=== PATIENT | female | born 1965 | race Caucasian/White ===

== ENCOUNTER 2022-09-29 10:42 | Outpatient (REF) | payer MEDICAID, SELFPAY ==
[2022-09-29 13:50] LABS: MANUAL DIFF FLAG NO
[2022-09-29 13:57] LABS: Basophils Percent Auto 0.5 % (0-2); Eosinophils Absolute Auto 0.1 X10*3/uL (0.0-0.4); Eosinophils Percent Auto 1.6 % (0-4); Hematocrit 39.7 % (37.0-47.0); Hemoglobin 12.6 g/dl (12.0-16.0); Imm Gran Abs Auto 0.02 X10*3/uL (0.00-0.03); Imm Gran Pct Auto 0.3 % (0.0-0.4); Lymphocytes Absolute Auto 2.7 X10*3/uL (1.2-4.9); Lymphocytes Percent Auto 43.1 % (20-40); Mean Corpuscular HGB Conc 31.7 g/dl (31.0-35.0); Mean Corpuscular Hemoglobin 26.3 pg (27.0-33.0); Mean Corpuscular Volume 82.9 fL (80.0-98.0); Mean Platelet Volume 11.8 fL (9.4-12.3); Monocytes Absolute Auto 0.5 X10*3/uL (0.1-1.2); Monocytes Percent Auto 8.6 % (2-11); Neutrophils Absolute Auto 2.8 x10*3/uL (2.0-8.3); Neutrophils Percent Auto 45.9 % (45-73); Platelet Count 207 X10*3/uL (160-400); Red Blood Count 4.79 X10*6/uL (4.20-5.50); Red Cell Distribution Width 15.8 % (11.0-16.0); White Blood Count 6.2 X10*3/uL (4.8-10.8)
[2022-09-29 14:22] LABS: Estimated Average Glucose 131 mg/dL; Hemoglobin A1c % 6.2 %
[2022-09-29 14:23] LABS: Alanine Aminotransferase 59 U/L (0-31); Albumin Level 4.4 g/dL (3.5-5.0); Alkaline Phosphatase 107 U/L (39-117); Anion Gap 16 (12-20); Aspartate Amino Transferase 48 U/L (5-31); Bilirubin Total 0.5 mg/dL (0.0-1.0); Blood Urea Nitrogen 15 mg/dL (9-16); Calcium 9.5 mg/dL (8.4-10.2); Carbon Dioxide 27 mmol/L (22-29); Chloride 103 mmol/L (96-108); Cholesterol 135 mg/dL; Estimated Glomerular Filt Rate > 60; Glucose Fasting 101 mg/dL (60-99); HDL Cholesterol 45 mg/dL; LDL Cholesterol Calculated 64 mg/dl; Potassium 3.9 mmol/L (3.3-5.1); Sodium 142 mmol/L (135-145); Total Protein 7.2 g/dL (6.5-8.0); Triglycerides 131 mg/dL
[2022-09-29 14:31] LABS: Creatinine Urine 202.06 mg/dL; Microalbum/Creatinine Ratio Ur 7.9 ug/mg cr
[2022-09-29 14:44] LABS: Thyroid Stimulating Hormone 1.95 uIU/mL (0.32-4.0)
== END 2022-09-29 10:43 | disposition home or self-care (01) ==
LOC: HO.10HDL 10:42
PROVIDERS: Visit Provider Internal Medicine
DX: Z00.00 Encounter for general adult medical examination without abnormal findings (principal); E78.00 Pure hypercholesterolemia, unspecified; E88.9 Metabolic disorder, unspecified; F32.4 Major depressive disorder, single episode, in partial remission; I10 Essential (primary) hypertension; Z95.818 Presence of other cardiac implants and grafts
CPT/HCPCS: 36415; 80053; 80061; 82043; 83036; 84443; 85025

== ENCOUNTER 2022-10-07 09:44 | Outpatient (REF) | payer MEDICAID, SELFPAY ==
--- NOTE | ~2022-10-07 | MM_ITS ---
EXAMINATION: MM SCREENING DIGITAL BREAST TOMOSYNTHESIS, BILATERAL CLINICAL INFORMATION: Screening. Asymptomatic. The lifetime risk of breast cancer based on the Tyrer-Cuzick Model is 5.5%. COMPARISON: Mammography: None TECHNIQUE: Digital breast tomosynthesis is performed in both the craniocaudal and mediolateral oblique views along with computer-aided detection (CAD). Synthesized 2D images are generated from the tomosynthesis. FINDINGS: The breasts are almost entirely fatty (ACR BI-RADS breast composition Category a). There are no significant masses, abnormal calcifications, or other abnormalities. MM/MM tomosynthesis screening BI IMPRESSION: No mammographic evidence of malignancy. ASSESSMENT: BI-RADS 1: Negative RECOMMENDATION: Routine annual mammography screening. This patient's information was entered into a reminder system with a target due date for their next mammogram.
== END 2022-10-07 09:45 | disposition home or self-care (01) ==
LOC: HO.MAMMO 09:44
PROVIDERS: Visit Provider Internal Medicine
DX: Z12.31 Encounter for screening mammogram for malignant neoplasm of breast (principal)
CPT/HCPCS: 77063; 77067

== ENCOUNTER 2022-11-20 10:56 | Day surgery (SDC) | payer MEDICAID, SELFPAY ==
--- NOTE | 2022-11-19 10:40 | HO.ANESPROP2 ---
Documented by User: Mayelin Harris NP 11/19/22 11:16 HPI - Anesthesia Eval Consult details Narrative: 57yo F for Colonoscopy PA with stent 2016. Only follows with PCP now. No CP or SOB with >4 mets. EKG nml per 09/2022 per PCP OV note PMFSH Past Medical History Medical History Diabetes HTN (hypertension) Hyperlipidemia Myocardial infarction Panic attack Surgical History Surgical History Hx of heart artery stent Hx of hysterectomy Social History Social History Patient Tobacco Use Status: Former Tobacco user Are you DNR?: No Advance Directives: No Advance Directives Information Provided: Yes Recently lost weight without trying: No Nutrition Risks: No Nutritional Risk Meds Allergies Allergy/AdvReac Type Severity Reaction Status Date / Time No Known Allergies Allergy Verified 11/19/22 06:11 Home Medications Medication Instructions Recorded Confirmed Last Taken Type aspirin 81 mg tablet,delayed 1 tab PO DAILY 11/19/22 11/19/22 11/13/22 History release lorazepam 0.5 mg tablet 1 - 1.5 tab PO DAILY PRN Anxiety 11/19/22 11/19/22 Unknown History metformin 500 mg tablet 1 tab PO BID 11/19/22 11/19/22 Unknown History metoprolol succinate 50 mg 1 tab PO DAILY 11/19/22 11/19/22 11/20/22 History tablet,extended release 24 hr rosuvastatin 40 mg tablet 1 tab PO DAILY 11/19/22 11/19/22 Unknown History sertraline 100 mg tablet 1 tab PO DAILY 11/19/22 11/19/22 11/20/22 History cholecalciferol (vitamin D3) 50 50 mcg PO DAILY 11/20/22 11/20/22 Unknown History mcg (2,000 unit) tablet (Vitamin D3) lisinopril 20 1 tab PO DAILY 11/20/22 11/20/22 Unknown History mg-hydrochlorothiazide 25 mg tablet Exam Exam Date and Time: November 19, 2022 1040 Pertinent Lab Results Pertinent Lab Results: Laboratory Tests 09/29/22 09/29/22 10:50 10:50 WBC 6.2 Hgb 12.6 Hct 39.7 Plt Count 207 Sodium 142 Potassium 3.9 Chloride 103 Carbon Dioxide 27 BUN 15 Creatinine 0.81 Assessment and Plan Assessment Anesthesia Assessment: Chart Reviewed Documented by User: Sophie Crouch MD 11/20/22 12:43 PMFSH Past Medical History Medical History Diabetes HTN (hypertension) Hyperlipidemia Myocardial infarction Panic attack Functional capacity: independent ambulation Family History Family history of problems with anesthesia: No Surgical History Surgical History Hx of heart artery stent Hx of hysterectomy Social History Social History Patient Tobacco Use Status: Former Tobacco user Are you DNR?: No Advance Directives: No Advance Directives Information Provided: Yes Recently lost weight without trying: No Nutrition Risks: No Nutritional Risk Meds Allergies Allergy/AdvReac Type Severity Reaction Status Date / Time No Known Allergies Allergy Verified 11/19/22 06:11 Home Medications Medication Instructions Recorded Confirmed Last Taken Type aspirin 81 mg tablet,delayed 1 tab PO DAILY 11/19/22 11/19/22 11/13/22 History release lorazepam 0.5 mg tablet 1 - 1.5 tab PO DAILY PRN Anxiety 11/19/22 11/19/22 Unknown History metformin 500 mg tablet 1 tab PO BID 11/19/22 11/19/22 Unknown History metoprolol succinate 50 mg 1 tab PO DAILY 11/19/22 11/19/22 11/20/22 History tablet,extended release 24 hr rosuvastatin 40 mg tablet 1 tab PO DAILY 11/19/22 11/19/22 Unknown History sertraline 100 mg tablet 1 tab PO DAILY 11/19/22 11/19/22 11/20/22 History cholecalciferol (vitamin D3) 50 50 mcg PO DAILY 11/20/22 11/20/22 Unknown History mcg (2,000 unit) tablet (Vitamin D3) lisinopril 20 1 tab PO DAILY 11/20/22 11/20/22 Unknown History mg-hydrochlorothiazide 25 mg tablet Exam Airway Mallampati Class: II TM Dist: >3cm Neck ROM: Full Heart: RRR Lungs: CTA Assessment and Plan Final Anesthetic Review Family History of Problems with Anesthesia: No Final Preanesthetic Review: No Changes in Pt Med Stat, Meds/Allgs Chart Reviewed, Consent Obtained/Reviewed and Anes Risks/Benef Reviewed Patient Risk: Intermediate Procedure Risk: Low Anesthetic Plan Anesthetic Plan: MAC: Disposition: Standard PACU
[2022-11-20 10:38] VITALS: BMI 38.2
[2022-11-20 10:59] VITALS: BP 151/99; PULSE 104; RESP 20; TEMP 36.3; O2SAT 98
[2022-11-20 11:10] LABS: Glucose, Whole Blood 143 mg/dL (60-115)
[2022-11-20] MEDS: Lactated Ringers 1,000 ML 100 ML IVCONT (11:30)
--- NOTE | 2022-11-20 12:24 | MHC.SHP ---
Pre-Procedural Eval Section A Date of Service: 11/20/22 The patient is an INPATIENT: No Changes since office visit: No Cold of Flu in the past 2 weeks, No New Medical Problems, No Changes in Medication and No Patient answered all questions The History & Physical has been completed within 30 days and I have reviewed it.: Yes Section B Chief Complaint: screening Allergies: Allergies Allergy/AdvReac Type Severity Reaction Status Date / Time No Known Allergies Allergy Verified 11/19/22 06:11 Plan I have reviewed the history and physical and performed a pertinent physical examination on my patient. No changes have occurred unless specified. Time Spent With Patient Time: Total time managing care of this patient today ____ minutes.
--- NOTE | 2022-11-20 13:03 | P.BOP_ITS ---
Brief Operative Note Date of Service: 11/20/22 Pre-op diagnosis: screening Post-op diagnosis: same Procedure: colonoscopy Surgeon: Keith Berrios Anesthesia: MAC Was an Flame Brazing Machine Operator used for this Procedure?: No Estimated blood loss (mL): 3 Pathology: other Condition: stable Disposition: PACU
[2022-11-20 13:06] VITALS: BP 92/65; PULSE 82; RESP 16; TEMP 36.4; O2SAT 96
[2022-11-20 13:21] VITALS: BP 143/89; PULSE 78; RESP 16; TEMP 36.4; O2SAT 96
--- NOTE | 2022-11-20 13:34 | HO.POSTANES ---
Post Anesthesia Evaluation Post Anesthesia Evaluation Vital Signs: Vital Signs Temp Pulse Resp BP Pulse Ox O2 Del Method 11/20/22 13:21 97.6 F 78 16 143/89 H 96 Room Air 11/20/22 13:06 97.6 F 82 16 92/65 96 Room Air 11/20/22 10:59 97.3 F 104 H 20 151/99 H 98 Room Air Anesthesia: Monitored Mental Status: Awake Pain Control: Satisfactory Nausea/Vomiting: None Hydration: Adequate Anesthesia-Related Issues: No Anes. Related Issues
--- NOTE | 2022-11-21 00:59 | OP_ITS ---
SURGEON: Keith Berrios MD PREOPERATIVE DIAGNOSIS: POSTOPERATIVE DIAGNOSIS: PROCEDURE PERFORMED: ESTIMATED BLOOD LOSS: COMPLICATIONS: ANESTHESIA: ASSISTANTS: SPECIMENS: DESCRIPTION OF PROCEDURE: The history and physical was performed. The risks and benefits of the procedure were explained to the patient, and informed consent was obtained. The procedure was performed on 11/20/2022. A digital rectal exam was performed and was found to be normal. The Olympus pediatric video colonoscope was introduced into the rectum and advanced to the cecum without difficulty. The cecum was identified by transillumination, palpation, and identification of the ileocecal valve. Examination was performed. The scope was removed. She tolerated the procedure well and was returned to the recovery area in stable condition. FINDINGS: The terminal ileum was examined and appeared normal. The visualized colonic mucosa was normal. There were 2 polyps, which were removed with a snare. These were located at 80 cm and 75 cm. The 3rd polyp measuring less than 5 mm in the cecum was removed with the biopsy forceps. There was mild sigmoid diverticulosis. The quality of the prep was good. Retroflexed examination was normal. IMPRESSION: Colon polyps. RECOMMENDATION: Follow up the biopsy results. MD YUE Hester/ALMA / [id number]
== END 2022-11-20 13:45 | disposition home or self-care (01) ==
PROVIDERS: PCP Internal Medicine; Visit Provider Internal Medicine Gastroenterology
PROC: 0DJD8ZZ Inspection of Lower Intestinal Tract, Via Natural or Artificial Opening Endoscopic (ICD-10-PCS; CPT 45378; principal; 2022-11-20 12:00)
DX: Z12.11 Encounter for screening for malignant neoplasm of colon (principal); D12.0 Benign neoplasm of cecum; D12.4 Benign neoplasm of descending colon; K57.30 Diverticulosis of large intestine without perforation or abscess without bleeding; I25.10 Atherosclerotic heart disease of native coronary artery without angina pectoris; I10 Essential (primary) hypertension; Z95.5 Presence of coronary angioplasty implant and graft; I25.2 Old myocardial infarction; E78.5 Hyperlipidemia, unspecified; E11.9 Type 2 diabetes mellitus without complications; Z79.84 Long term (current) use of oral hypoglycemic drugs; Z79.82 Long term (current) use of aspirin; Z79.899 Other long term (current) drug therapy; Z87.891 Personal history of nicotine dependence
CPT/HCPCS: 45385; 45380; 82947; 88305

== ENCOUNTER 2023-03-04 13:23 | Outpatient (REF) | payer MEDICAID, SELFPAY ==
[2023-03-04 14:52] LABS: Alanine Aminotransferase 48 U/L (0-31); Albumin Level 4.2 g/dL (3.5-5.0); Alkaline Phosphatase 108 U/L (39-117); Anion Gap 17 (12-20); Aspartate Amino Transferase 41 U/L (5-31); Bilirubin Total 0.5 mg/dL (0.0-1.0); Blood Urea Nitrogen 15 mg/dL (9-16); Calcium 9.8 mg/dL (8.4-10.2); Carbon Dioxide 27 mmol/L (22-29); Chloride 103 mmol/L (96-108); Estimated Glomerular Filt Rate > 60; Glucose Random 87 mg/dL (60-115); Potassium 3.3 mmol/L (3.3-5.1); Sodium 144 mmol/L (135-145); Total Protein 7.6 g/dL (6.5-8.0)
[2023-03-05 12:47] LABS: HBS Num1 0.07 mIU/mL (0-7.99); HBc Num1 0.09 S/CO (0.00-0.79); HBsAGNum1 0.32 S/CO (0.00-0.99); Hepatitis A Antibody IgM 0.27 Index (0-0.79); Hepatitis B Core Antibody Nonreactive (Nonreactive); Hepatitis B Surface Antigen Negative (Negative); ~HepC Num1 0.06 S/CO (0.00-0.79); ~Hepatitis A Antibody IgM Nonreactive (Nonreactive); ~Hepatitis B Surface Antibody NONREACTIVE (Nonreactive); ~Hepatitis C Antibody Nonreactive (Nonreactive)
== END 2023-03-04 13:24 | disposition home or self-care (01) ==
LOC: HO.LAB 13:23
PROVIDERS: PCP Internal Medicine; Visit Provider Internal Medicine
DX: E78.00 Pure hypercholesterolemia, unspecified (principal); I10 Essential (primary) hypertension; R74.01 Elevation of levels of liver transaminase levels; Z95.818 Presence of other cardiac implants and grafts
CPT/HCPCS: 36415; 80053; 86704; 86706; 86709; 86803; 87340

== ENCOUNTER 2023-06-24 08:07 | Outpatient (REF) | payer MEDICAID, SELFPAY | END 2023-06-24 08:08 | disposition home or self-care (01) | LOC: HO.LAB 08:07 | PROVIDERS: PCP Internal Medicine; Visit Provider Internal Medicine | DX: E11.9 Type 2 diabetes mellitus without complications (principal); E78.00 Pure hypercholesterolemia, unspecified; I10 Essential (primary) hypertension; R74.01 Elevation of levels of liver transaminase levels | CPT/HCPCS: 36415; 80053; 83036 ==

== ENCOUNTER 2023-10-13 09:59 | Outpatient (REF) | payer MEDICAID, SELFPAY ==
--- NOTE | ~2023-10-13 | MM_ITS ---
EXAMINATION: MM SCREENING DIGITAL BREAST TOMOSYNTHESIS, BILATERAL CLINICAL INFORMATION: Screening. Asymptomatic. COMPARISON: Mammography: This study is compared with prior exams dating back to 2022. TECHNIQUE: Digital breast tomosynthesis is performed in both the craniocaudal and mediolateral oblique views along with computer-aided detection (CAD). Synthesized 2D images are generated from the tomosynthesis. FINDINGS: The breasts are almost entirely fatty (ACR BI-RADS breast composition Category a). There are no significant masses, abnormal calcifications, or other abnormalities. MM/MM tomosynthesis screening BI IMPRESSION: No mammographic evidence of malignancy. ASSESSMENT: BI-RADS BI-RADS 1 - Negative RECOMMENDATION: Routine annual mammography screening. 1 year F/U This examination should not preclude the clinical evaluation of a suspicious palpable abnormality. This patient's information was entered into a reminder system with a target due date for their next mammogram.
[2023-10-13 11:10] LABS: MANUAL DIFF FLAG NO
[2023-10-13 11:59] LABS: Basophils Percent Auto 0.6 % (0-2); Eosinophils Absolute Auto 0.1 X10*3/uL (0.0-0.4); Eosinophils Percent Auto 1.4 % (0-4); Hematocrit 38.9 % (37.0-47.0); Hemoglobin 12.3 g/dl (12.0-16.0); Imm Gran Abs Auto 0.02 X10*3/uL (0.00-0.03); Imm Gran Pct Auto 0.3 % (0.0-0.4); Lymphocytes Absolute Auto 2.6 X10*3/uL (1.2-4.9); Lymphocytes Percent Auto 39.3 % (20-40); Mean Corpuscular HGB Conc 31.6 g/dl (31.0-35.0); Mean Corpuscular Hemoglobin 26.2 pg (27.0-33.0); Mean Corpuscular Volume 82.9 fL (80.0-98.0); Mean Platelet Volume 11.5 fL (9.4-12.3); Monocytes Absolute Auto 0.5 X10*3/uL (0.1-1.2); Neutrophils Absolute Auto 3.4 x10*3/uL (2.0-8.3); Neutrophils Percent Auto 50.4 % (45-73); Platelet Count 200 X10*3/uL (160-400); Red Blood Count 4.69 X10*6/uL (4.20-5.50); Red Cell Distribution Width 15.9 % (11.0-16.0); White Blood Count 6.7 X10*3/uL (4.8-10.8)
[2023-10-13 12:05] LABS: Estimated Average Glucose 126 mg/dL
[2023-10-13 12:35] LABS: Alanine Aminotransferase 60 U/L (0-31); Albumin Level 4.2 g/dL (3.5-5.0); Alkaline Phosphatase 107 U/L (39-117); Anion Gap 14 (12-20); Aspartate Amino Transferase 48 U/L (5-31); Bilirubin Total 0.5 mg/dL (0.0-1.0); Blood Urea Nitrogen 13 mg/dL (9-16); Calcium 9.7 mg/dL (8.4-10.2); Carbon Dioxide 29 mmol/L (22-29); Chloride 101 mmol/L (96-108); Cholesterol 119 mg/dL (<200); Estimated Glomerular Filt Rate > 60; Glucose Random 100 mg/dL (60-115); HDL Cholesterol 39 mg/dL (>40); LDL Cholesterol Calculated 54 mg/dL (<100); Potassium 3.4 mmol/L (3.3-5.1); Sodium 141 mmol/L (135-145); Total Protein 7.6 g/dL (6.5-8.0); Triglycerides 134 mg/dL (<150)
[2023-10-17 23:18] LABS: Smooth Muscle Antibody <20 U (<20)
[2023-10-19 11:19] LABS: Anti Nuclear Antibody Screen NEGATIVE (NEGATIVE)
== END 2023-10-13 10:00 | disposition home or self-care (01) ==
LOC: HO.MAMMO 09:59
PROVIDERS: PCP Internal Medicine; Visit Provider Internal Medicine
DX: Z00.00 Encounter for general adult medical examination without abnormal findings (principal); E11.9 Type 2 diabetes mellitus without complications; E78.00 Pure hypercholesterolemia, unspecified; R74.01 Elevation of levels of liver transaminase levels
CPT/HCPCS: 36415; 77063; 77067; 80053; 80061; 83036; 85025; 86015; 86038

== ENCOUNTER → 2023-10-13 10:30 | Outpatient (BNV) | payer MEDICAID, SELFPAY | PROVIDERS: PCP Internal Medicine; Visit Provider Radiology Diagnostic Radiology | DX: Z12.31 Encounter for screening mammogram for malignant neoplasm of breast (principal) | CPT/HCPCS: 77063; 77067 ==

== ENCOUNTER 2023-11-22 07:51 | Outpatient (REF) | payer MEDICAID, SELFPAY ==
--- NOTE | ~2023-11-22 | US_ITS ---
EXAMINATION: US COMPLETE ABDOMEN WITH LIVER ELASTOGRAPHY CLINICAL INFORMATION: Elevated LFTs. COMPARISON: None available. TECHNIQUE: Real-time imaging of the abdominal viscera. Noninvasive ultrasound liver fibrosis assessment is performed using Nathaly ElastPQ point quantification shear wave elastography (2D-SWE) with a C5-2 MHz transducer. Multiple elastography samples are obtained. FINDINGS: PANCREAS: Head and body appear unremarkable. Tail not visualized. ABDOMINAL AORTA: The proximal, middle, and distal aortic segments are normal in caliber. INFERIOR VENA CAVA: Visualized portions are normal. LIVER: Diffusely echogenic. Unremarkable contour. No focal lesion or intrahepatic biliary duct dilatation. The right lobe measures 21.7 cm in length. The left lobe measures 12.1 cm in length. Portal flow is towards the liver (hepatopetal). Shear wave liver elastography median stiffness is 1.44 m/s (reference: normal median stiffness is 1.3 m/s or less). IQR/median stiffness to assess sampling precision is 0.29 (reference: good quality data set is IQR/median stiffness of 0.15 or less). GALLBLADDER: The gallbladder is physiologically distended without evidence of stones, sludge, polyps, wall thickening or pericholecystic fluid. COMMON BILE DUCT: Normal in caliber measuring 0.4 cm in diameter. RIGHT KIDNEY: No hydronephrosis. No renal calculi or focal parenchymal lesion identified. The kidney measures 12.7 cm in maximum dimension. LEFT KIDNEY: No hydronephrosis. No renal calculi or focal parenchymal lesion identified. The kidney measures 11.7 cm in maximum dimension. SPLEEN: The spleen measures 11.3 cm in maximum dimension. FREE FLUID: None. US/US abdomen comp w elastography IMPRESSION: Fatty infiltration of liver. Hepatomegaly. Liver elastography: Although measurements appear to rule out compensated advanced chronic liver disease, there is statistical variability of the sampling which decreases accuracy. REFERENCE: Society of Radiologists in Ultrasound Liver Stiffness Thresholds (2020): LIVER STIFFNESS THRESHOLDS: *Liver Stiffness equal or less than 1.3 m/s: High probability of being normal. *Liver Stiffness less than 1.7 m/s: In the absence of other known clinical signs, rules out compensated advanced chronic liver disease. *Liver Stiffness 1.7-2.1 m/s: Suggestive of compensated advanced chronic liver disease but need further test for confirmation. *Liver Stiffness over 2.1 m/s: Rules in compensated advanced chronic liver disease. *Liver Stiffness over 2.4 m/s: Suggestive of clinically significant portal hypertension. QUALITY OF DATA SET: *IQR/Median value equal or less than 0.15 implies a quality data set. *IQR/Median value over 0.15 implies a poor quality data set. SIGNIFICANT CHANGE FROM PRIOR EXAM: Significant change if liver stiffness measurement is 10% or greater from prior exam. OTHER CONSIDERATIONS: The stage of liver fibrosis may be overestimated in the setting of acute hepatitis, liver inflammation, elevated liver function tests, hepatic vascular congestion, obstructive cholestasis, non-fasting state, and infiltrative diseases such as amyloidosis and lymphoma. In some patients with NAFLD, the liver stiffness thresholds for compensated advanced chronic liver disease may be lower. In causes other than viral hepatitis and NAFLD, liver stiffness thresholds are not well established.
== END 2023-11-22 07:52 | disposition home or self-care (01) ==
LOC: HO.US 07:51
PROVIDERS: PCP Internal Medicine; Visit Provider Internal Medicine
DX: R74.01 Elevation of levels of liver transaminase levels (principal)
CPT/HCPCS: 76700; 76981

== ENCOUNTER 2024-10-18 09:31 | Outpatient (REF) | payer MEDICAID, SELFPAY ==
--- OUTSIDE RECORDS SUMMARY | 2024-10-18 11:04 | XMS_ITS | Patient Health Record ---
Author Organization [facility] Address [address] [place] [id number] Care Team Providers Care Product Delivery Specialist Name Role Phone Matilde Guaman Primary Care Provider Unavailab Keith Brar Jr Unavailable ALLERGIES No Known Allergies REASON FOR REFERRAL No Information MEDICATIONS Medication SIG (Take, Route, Frequency, Duration) Notes Start Date End Date Status metFORMIN HCl 500 MG TAKE 1 TABLET BY MO UTH TWICE DAILY Oral for 90 Active Metoprolol Succinate ER 50 MG TAKE 1 TABLET BY MOUTH DAILY Oral for 90 Active Aspirin Low Dose 81 MG TAKE 1 TABLET BY MOUTH DAILY Oral for 90 Active Lisinopril-hydroCHLOROthiaz vandana 20-25 MG TAKE 1 TABLET BY MOUTH DAILY Oral for 90 Active Sertraline HCl 100 MG TAKE 1 TABLET BY M OUTH EVERY DAY Oral for 90 Active LORazepam 0.5 MG TAKE 1 TO 1 AND 1/2 TABLETS BY MOUTH DAILY NEEDED Oral for 30 Active Rosuvastatin Calcium 40 MG TAKE 1 TABLET BY MOUTH EVERY DAY Oral for 90 Active MiraLax (colon prep) 17 GM/SCOOP mixed with Gatorade or Crystal Light Orally begin at 5:00 p.m. the day before the procedure for 1 day 10/26/2022 Active IMMUNIZATIONS Vaccine Route Administration Date Status Comme nts Influenza Unknown 07/01/2022 Administered SOCIAL HISTORY Tobacco Use: Social History Observation Description Date Details (start date - stop date) Former Smoker NA - NA Sex Assigned At : Social History Observation Description Sex Assigned At Unknown Tobacco Use/Smoking Question Answer Notes Patient is a former smoker Alcohol Screen Question Answer Notes Did you have a drink containing alcohol in the p ast year? 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 (Z79.84) Active confirmed [id number] PLAN OF TREATMENT Future Test Test Name Order Date COLONOSCOPY 10/26/2022 Insurance Providers Payer Name Payer Address Payer Phone Subscriber Number Group Number Insured Name Patient Relationship to Insured Coverage Start Date Coverage End Date MEDICA[employer] OF [employer] [address] [place] [phone] [id number] SANDRA ROSE Self - patient is the insured MEDICAL (GENERAL) HISTORY Medical History History ICD Code Coronary artery disease with [place] and sten t placement 2017 Hypertension Hyperlipidemia Elevated blood sugar Panic attacks Surgical History Surgery Date(Month/Year) hysterectomy 2003 stent/heart 2017
== END 2024-10-18 09:32 | disposition home or self-care (01) ==
LOC: HO.MAMMO 09:31
PROVIDERS: PCP Internal Medicine; Visit Provider Internal Medicine
DX: Z12.31 Encounter for screening mammogram for malignant neoplasm of breast (principal)
CPT/HCPCS: 77063; 77067

== ENCOUNTER → 2024-10-18 10:00 | Outpatient (BNV) | payer MEDICAID, SELFPAY | PROVIDERS: PCP Internal Medicine; Visit Provider Internal Medicine | DX: Z12.31 Encounter for screening mammogram for malignant neoplasm of breast (principal) | CPT/HCPCS: 77063; 77067 ==

== ENCOUNTER 2024-10-18 10:19 | Outpatient (REF) | payer MEDICAID, SELFPAY ==
[2024-10-18 11:26] LABS: Estimated Average Glucose 131 mg/dL; Hemoglobin A1C 148.6855 umol/L; Hemoglobin A1c % 6.2 % (<6.0); Total Hemoglobin (HGBA1C) 3374.5025 umol/L
[2024-10-18 11:47] LABS: Alanine Aminotransferase 71 U/L (0-31); Albumin Level 4.3 g/dL (3.5-5.0); Alkaline Phosphatase 115 U/L (39-117); Anion Gap 13 (12-20); Aspartate Amino Transferase 68 U/L (5-31); Bilirubin Total 0.5 mg/dL (0.0-1.0); Blood Urea Nitrogen 15 mg/dL (9-16); Calcium 9.7 mg/dL (8.4-10.2); Carbon Dioxide 30 mmol/L (22-29); Chloride 99 mmol/L (96-108); Cholesterol 114 mg/dL (<200); Estimated Glomerular Filt Rate > 60; Glucose Random 107 mg/dL (60-115); HDL Cholesterol 36 mg/dL (>40); LDL Cholesterol Calculated 58 mg/dL (<100); Sodium 139 mmol/L (135-145); Total Protein 8.1 g/dL (6.5-8.0); Triglycerides 102 mg/dL (<150)
[2024-10-18 12:05] LABS: Thyroid Stimulating Hormone 1.38 uIU/mL (0.32-4.0)
[2024-10-18 12:19] LABS: Creatinine Urine 221.63 mg/dL; Microalbum/Creatinine Ratio Ur 9.4 ug/mg cr (<30)
== END 2024-10-18 10:20 | disposition home or self-care (01) ==
LOC: HO.LAB 10:19
PROVIDERS: PCP Internal Medicine; Visit Provider Internal Medicine
DX: Z00.00 Encounter for general adult medical examination without abnormal findings (principal); E78.00 Pure hypercholesterolemia, unspecified; E88.9 Metabolic disorder, unspecified; R74.01 Elevation of levels of liver transaminase levels; Z95.818 Presence of other cardiac implants and grafts
CPT/HCPCS: 36415; 80053; 80061; 82043; 82570; 83036; 84443

== ENCOUNTER 2025-03-29 13:51 | Outpatient (REF) | payer MEDICAID, SELFPAY ==
--- OUTSIDE RECORDS SUMMARY | 2025-03-05 09:35 | XMS_ITS ---
Author Organization [facility] Address [address] [place] [phone] Care Team Providers Care Linux Administrator Name Role Phone Matilde Guaman Primary Care Provider Unavailab marco Berrios Jr, Keith Unavailable REASON FOR VISIT ELEVATED TRANSAMNASE Encounters Encounter Location Date Provider Diagnosis [facility] [address] [place] [phone] 03/05/2025 Keith Berrios Jr Plan Of Treatment Next Appt Details Provider Name:Keith dumont Jr, 03/29/2025 02:15:00 PM, [address] [facility], [address], [place], [address], Provider Name:Keith dumont Jr, 11/29/2025 01:55:00 PM, [address] [place] [address], [address], [place], [address], Progress Notes * SANDRA ROSEDOB: 4 (60 yo F)Acc No.[id number]:03/05/2025 Progress Notes Patient: RENUKA GREENARIS Provider: Lissa Berrios MD :1965 A ge:60 Y S ex:Female Date:03/05/2025 Address:[address] [place] [address] rishi [id number] Pcp:Matilde Guaman Subjective: * Chief Complaints: * [...] MD Date: 0 03/05/2025 Generated for Darlene lau/Yennifer/Reji on: 0 03/29/2025 01:54 PM EDT
[2025-03-29 14:39] LABS: Hematocrit 37.9 % (37.0-47.0); Hemoglobin 12.3 g/dl (12.0-16.0); Mean Corpuscular HGB Conc 32.5 g/dl (31.0-35.0); Mean Corpuscular Hemoglobin 25.9 pg (27.0-33.0); Mean Corpuscular Volume 79.8 fL (80.0-98.0); NRBC Abs Auto 0.000 X10*3/uL (0.0-0.012); NRBC Pct Auto 0.0 /100WBC (0.0-0.2); Platelet Count 221 X10*3/uL (160-400); Red Blood Count 4.75 X10*6/uL (4.20-5.50); White Blood Count 6.2 X10*3/uL (4.8-10.8)
[2025-03-29 14:58] LABS: Hemoglobin A1C 147.7592 umol/L; Total Hemoglobin (HGBA1C) 3220.6525 umol/L
[2025-03-29 15:23] LABS: Alanine Aminotransferase 49 U/L (0-31); Albumin Level 4.4 g/dL (3.5-5.0); Alkaline Phosphatase 103 U/L (39-117); Anion Gap 13 (12-20); Aspartate Amino Transferase 50 U/L (5-31); Blood Urea Nitrogen 14 mg/dL (9-16); Calcium 9.5 mg/dL (8.4-10.2); Carbon Dioxide 31 mmol/L (22-29); Chloride 100 mmol/L (96-108); Estimated Glomerular Filt Rate > 60; Potassium 2.9 mmol/L (3.3-5.1); Sodium 141 mmol/L (135-145); Total Protein 7.5 g/dL (6.5-8.0)
[2025-03-29 15:24] LABS: Alanine Aminotransferase 49 U/L (0-31); Albumin Level 4.4 g/dL (3.5-5.0); Alkaline Phosphatase 103 U/L (39-117); Aspartate Amino Transferase 51 U/L (5-31); Iron 70 mcg/dL (30-160); Percent Iron Saturation 20 % (15-50); Total Iron Binding Capacity 356 mcg/dL (228-428); Total Protein 7.4 g/dL (6.5-8.0); Unsaturated Iron Binding 286 ug/dL
[2025-03-29 15:33] LABS: Ferritin 140 ng/mL (10-250)
[2025-04-06 20:57] LABS: FIB-ALT 39 U/L (6-29); FIB-Alpha-2-Macroglobulin 226 mg/dL (106-279); FIB-Apolipoprotein A1 146 mg/dL (101-198); FIB-GGT 47 U/L (3-65); FIB-Haptoglobin 379 mg/dL (43-212); FIB-Total Bilirubin 0.4 mg/dL (0.2-1.2); Liver Fibrosis Score 0.17; Liver Fibrosis Stage F0; Nec Inflam Act Grade A0-A1; Nec Inflam Act Score 0.18
== END 2025-03-29 13:52 | disposition home or self-care (01) ==
LOC: HO.LAB 13:51
PROVIDERS: Absent Provider Internal Medicine Gastroenterology; PCP Internal Medicine; Visit Provider Internal Medicine
DX: E11.9 Type 2 diabetes mellitus without complications (principal); R74.01 Elevation of levels of liver transaminase levels; R74.8 Abnormal levels of other serum enzymes; F32.4 Major depressive disorder, single episode, in partial remission; E78.00 Pure hypercholesterolemia, unspecified; Z95.818 Presence of other cardiac implants and grafts
CPT/HCPCS: 36415; 80053; 80076; 81596; 82248; 82728; 83036; 83540; 85027; 86015

== ENCOUNTER 2025-04-18 13:29 | Outpatient (REF) | payer MEDICAID, SELFPAY ==
--- OUTSIDE RECORDS SUMMARY | 2025-03-05 09:35 | XMS_ITS ---
Author Organization [facility] Address [address] [place] [address] Care Team Providers Care Test Examiner Name Role Phone Matilde Guaman Primary Care Provider Unavailab Keith Brar Jr Unavailable REASON FOR VISIT ELEVATED TRANSAMNASE Encounters Encounter Location Date Provider Diagnosis [facility] [address] [place] [address] 03/05/2025 Keith Berrios Jr Plan Of Treatment Next Appt Details Provider Name:Keith dumont Jr, 11/29/2025 01:55:00 PM, [address], [address], [place], [address], Progress Notes * RENUKA ROSENYADOB: 4 (60 yo F)Acc No.[id number]:03/05/2025 Progress Notes Patient: SANDRA GREEN Provider: Lissa Berrios MD :1965 A ge:60 Y S ex:Female Date:03/05/2025 Address:[address] [place] [address] [id number] Pcp:Matilde Guaman Subjective: * Chief Complaints: * 1 . ELEVATED TRANSAMNASE. * Medical History: Objective: * Vitals: Assessment: Plan: * Treatment: * * The named appointment provid er may or may not be the originator of this progress note, and it is not deemed complete until electronically signed by the appointment provider. Sign off status: Pending * Provider: Lissa Berrios MD Date: 0 03/05/2025 Generated for Darlene lau/Yennifer/Magdalenaitting on: 0 04/18/2025 02:05 PM EDT
--- OUTSIDE RECORDS SUMMARY | 2025-04-18 14:05 | XMS_ITS ---
Author Name [facility] Organization Unknown Care Team Organization Name Specialty Phone Email Start Date End Da christie [facility] 07/28/2022 05/08/2024
[2025-04-18 14:50] LABS: Magnesium 2.0 mg/dL (1.6-2.6); Potassium 3.4 mmol/L (3.3-5.1)
== END 2025-04-18 13:30 | disposition home or self-care (01) ==
LOC: HO.LAB 13:29
PROVIDERS: PCP Internal Medicine; Visit Provider Internal Medicine
DX: E11.9 Type 2 diabetes mellitus without complications (principal); E87.6 Hypokalemia; R74.01 Elevation of levels of liver transaminase levels; Z95.818 Presence of other cardiac implants and grafts
CPT/HCPCS: 36415; 83735; 84132

== ENCOUNTER 2025-07-16 10:34 | Outpatient (REF) | payer MEDICAID, SELFPAY ==
--- OUTSIDE RECORDS SUMMARY | 2025-03-05 09:35 | XMS_ITS ---
Author Organization [facility] Address [address] [place] [address] Care Team Providers Care Flask Cleaner Name Role Phone Matilde Guaman Primary Care Provider Unavailab Keith Brar Jr Unavailable [phone] REASON FOR VISIT ELEVATED TRANSAMNASE Encounters Encounter Location Date Provider Diagnosis [facility] [address] [place] [address] 03/05/2025 Keith Berrios Jr Plan Of Treatment Next Appt Details Provider Name:Keith dumont Jr, 11/29/2025 01:55:00 PM, [address], [address], [place], [address], Progress Notes * RENUKA ROSENYADOB: 4 (60 yo F)Acc No.[id number]:03/05/2025 Progress Notes Patient: SANDRA GREEN Provider: Lissa Berrios MD :1965 A ge:60 Y S ex:Female Date:03/05/2025 Address:[address] [place] [address] [address] [id number] Pcp:Matilde Guaman Subjective: * Chief Complaints: * [...] MD Date: 0 03/05/2025 Generated for Darlene lau/Yennfier/Magdalenaitting on: 1 01:00 PM EDT
[2025-07-16 10:46] LABS: MANUAL DIFF FLAG NO
[2025-07-16 11:55] LABS: Hematocrit 40.8 % (37.0-47.0); Hemoglobin 12.9 g/dl (12.0-16.0); Imm Gran Abs Auto 0.02 X10*3/uL (0.00-0.03); Imm Gran Pct Auto 0.3 % (0.0-0.4); Lymphocytes Absolute Auto 2.5 X10*3/uL (1.2-4.9); Mean Corpuscular HGB Conc 31.6 g/dl (31.0-35.0); Mean Corpuscular Hemoglobin 25.9 pg (27.0-33.0); Mean Corpuscular Volume 81.9 fL (80.0-98.0); NRBC Abs Auto 0.000 X10*3/uL (0.0-0.012); NRBC Pct Auto 0.0 /100WBC (0.0-0.2); Platelet Count 202 X10*3/uL (160-400); Red Blood Count 4.98 X10*6/uL (4.20-5.50); White Blood Count 6.6 X10*3/uL (4.8-10.8)
[2025-07-16 12:03] LABS: Alanine Aminotransferase 60 U/L (0-31); Albumin Level 4.4 g/dL (3.5-5.0); Alkaline Phosphatase 121 U/L (39-117); Anion Gap 13 (12-20); Aspartate Amino Transferase 51 U/L (5-31); Blood Urea Nitrogen 12 mg/dL (9-16); Calcium 9.3 mg/dL (8.4-10.2); Carbon Dioxide 30 mmol/L (22-29); Chloride 104 mmol/L (96-108); Cholesterol 121 mg/dL (<200); Estimated Glomerular Filt Rate > 60; HDL Cholesterol 41 mg/dL (>40); Potassium 3.6 mmol/L (3.3-5.1); Sodium 143 mmol/L (135-145); Total Protein 7.5 g/dL (6.5-8.0); Triglycerides 126 mg/dL (<150)
[2025-07-16 12:09] LABS: Microalbum/Creatinine Ratio Ur 15.6 ug/mg cr (<30)
[2025-07-16 12:13] LABS: Hemoglobin A1C 151.0296 umol/L
--- OUTSIDE RECORDS SUMMARY | 2025-07-16 13:01 | XMS_ITS | Patient Health Record ---
Author Organization [facility] Address [address] [place] [phone] Care Team Providers Care Sap Technical Architect Name Role Phone Matilde Guaman Primary Care Provider Unavailab Keith Brar Jr Unavailable Allergies No Known Allergies Results Component Value Reference Range Notes Liver Fibrosis Pnl Reviewed date:04/12/2025 09:24:17 AM Interpretation: Performing Lab:[facility], [address] [place] [phone] Notes/Report: Liver Fibrosis Score 0.17 Liver Fibrosis Stage F0 Liver Fibrosis Interpretation SEE NOTE no fibrosis Fibro Test Score (f) Metavir Score f>=0 and f<=0.21 : F0 (no fibrosis) f>0.21 and f<=0.27 : F0-F1 (no fibrosis) f>0.27 and f<=0.31 : F1 (minimal fibrosis) f>0.31 and f<=0.48 : F1-F2 (minimal fibrosis) f>0.48 and f<=0.58 : F2 (moderate fibrosis) f>0.58 and f<=0.72 : F3 (advanced fibrosis) f>0.72 and f<=0.74 : F3-F4 (advanced fibrosis) f>0.74 and f<=1.00 : F4 (severe fibrosis) Nec Inflam Act Score 0.18 Nec Inflam Act Grade A0-A1 Nec Inflam Act Interpretation SEE NOTE no activity ActiTest Score (a) Metavir Score a>=0 and a<=0.17 : A0 (no activity) a>0.17 and a<=0.29 : A0-A1 (no activity) a>0.29 and a<=0.36 : A1 (minimal activity) a>0.36 and a<=0.52 : A1-A2 (minimal activity) a>0.52 and a<=0.60 : A2 (significant activity) a>0.60 and a<=0.62 : A2-A3 (significant activity) a>0.62 and a<=1.00 : A3 (severe activity) YYW-Onuwn-8-Macroglobulin 226 106-279 mg/dL FIB-Haptoglobin 379 43-212 mg/dL This value is highly elevated over the 99 percentile. Check the value and the absence of sepsis. Usual maximum value is 320.0 mg/dl. FIB-Apolipoprotein A1 146 101-198 mg/dL FIB-Total Bilirubin 0.4 0.2-1.2 mg/dL FIB-GGT 47 3-65 U/L FIB-ALT 39 6-29 U/L Reference ID [id number] Footnote SEE NOTE The reliability of results is dependent on compliance with the preanalytical and analytical conditions recommended by [employer]. The tests have to be deferred for: acute hemolysis, acute hepatitis, acute inflammation, extra hepatic cholestasis. The advice of a specialist should be sought for interpretation in chronic hemolysis and Gilbert's syndrome. The test interpretation is not validated in liver transplant patients. Isolated extreme values of one of the components should lead to caution in interpreting the results. In case of discordance between a biopsy result and a test, it is recommended to seek the advice of a specialist. The causes of these discordances could be due to a flaw of the test or to a flaw in the biopsy: i.e. a liver biopsy has a 33% variability rate for one fibrosis stage. FibroTest is interpretable for chronic hepatitis B and C, alcoholic and non alcoholic steatosis. ActiTest is interpretable for chronic hepatitis B and C. The performance characteristics have been determined by [employer]. It has not been cleared or approved by the U.S. Food and Drug Administration. Performance characteristics refer to the analytical performance of the test. [employer], the associated logo, [employer] and all associated [employer] perdomo are the registered trademarks of [employer]. All third republican perdomo - (R) and (TM) - are the property of their respective owners. (C) 0345-0028 [employer]. All rights reserved. THIS TEST WAS PERFORMED AT: [facility] [address] [place] [address] EVELYN GELLER MD,PHD,KETTY Complete Blood Count no Diff Reviewed date:04/02/2025 08:15:09 AM Interpretation: Performing Lab:[facility], [address] [place] [phone] Notes/Report: White Blood Count 6.2 4.8-10.8 X10*3/uL Red Blood Count 4.75 4.20-5.50 X10*6/uL Hemoglobin 12.3 12.0-16.0 g/dl Hematocrit 37.9 37.0-47.0 % Mean Corpuscular Volume 79.8 80.0-98.0 fL Mean Corpuscular Hemoglobin 25.9 27.0-33.0 pg Mean Corpuscular HGB Conc 32.5 31.0-35.0 g/dl Red Cell Distribution Width 16.2 11.0-16.0 % Platelet Count 221 160-400 X10*3/uL Mean Platelet Volume 11.0 9.4-12.3 fL NRBC Pct Auto 0.0 0.0-0.2 /100WBC NRBC Abs Auto 0.000 0.0-0.012 X10*3/uL Liver Panel Reviewed date:04/02/2025 08:15:02 AM Interpretation: Performing Lab:[facility], [address] [place] [phone] Notes/Report: Bilirubin Total 0.5 0.0-1.0 mg/dL Bilirubin Direct 0.2 0.0-0.5 mg/dL Aspartate Amino Transferase 51 5-31 U/L Alanine Aminotransferase 49 0-31 U/L Total Protein 7.4 6.5-8.0 g/dL Albumin Level 4.4 3.5-5.0 g/dL Alkaline Phosphatase 103 39-117 U/L IRON PROFILE Reviewed date:04/02/2025 08:15:21 AM Interpretation: Performing Lab:[facility], [address] [place] [phone] Notes/Report: Iron 70 30-160 mcg/dL Total Iron Binding Capacity 356 228-428 mcg/d L Percent Iron Saturation 20 15-50 % Unsaturated Iron Binding 286 Ferritin Reviewed date:04/02/2025 08:14:31 AM Interpretation: Performing Lab:[facility], [address] [place] [phone] Notes/Report: Ferritin 140 10-250 ng/mL Smooth Muscle Antibody Reviewed date:04/04/2025 04:15:28 PM Interpretation: Performing Lab:[facility], [address] [place] [phone] Notes/Report: Smooth Muscle Antibody <20 <20 U Reference Range: <20 U: Negative >or=20 U: Positive Antibodies recognizing actin are the main component of smooth muscle antibodies associated with auto- immune liver disease. Actin antibodies are found in approximately 75% of patients with autoimmune hepatitis (AIH) type 1, approximately 65% of patients with autoimmune cholangitis, approximately 30% of patients with primary biliary cirrhosis and approximately 2% of healthy controls. High values are closely correlated with AIH type 1. THIS TEST WAS PERFORMED AT: [facility] [address] CARMINA DEL VALLE MD,PHD Reason For Referral Referring Provider First Name Matilde Referring Provider Last Name Deniz Referring Provider Speciality Internal M edicine Referred Organization [facility] Referred Provider Keith Berrios Jr Referred Address [address] [place] [phone], Referred Provider Specialty Gastroentero logy Referral Priority Routine Medications Medication SIG (Take, Route, Frequency, Duration) Notes Start Date End Date Status Aspirin Low Dose 81 MG TAKE 1 TABLET BY MOUTH DAILY Oral; Duration: 90 Active Lisinopril-hydroCHLOROthiaz vandana 20-25 MG TAKE 1 TABLET BY MOUTH DAILY Oral; Duration: 90 Active Metoprolol Succinate ER 50 MG TAKE 1 TABLET BY MOUTH DAILY Oral; Duration: 90 Active metFORMIN HCl 500 MG TAKE 1 TABLET BY MO UTH TWICE DAILY Oral; Duration: 90 Active Rosuvastatin Calcium 40 MG TAKE 1 TABLET BY MOUTH EVERY DAY Oral; Duration: 90 Active Sertraline HCl 100 MG TAKE 1 TABLET BY M OUTH EVERY DAY Oral; Duration: 90 Active LORazepam 0.5 MG TAKE 1 TO 1 AND 1/2 TABLETS BY MOUTH DAILY NEEDED Oral; Duration: 30 Active Immunizations Vaccine Route Administration Date Status Comme nts Influenza Unknown 07/01/2022 Administered Influenza Unknown 07/12/2024 Administered Social History Tobacco Use: Social History Observation Description Date Details (start date - stop date) Former Smoker NA - NA Tobacco Use/Smoking Question Answer Notes Patient is a former smoker Alcohol Screen Question Answer Notes Did you have a drink containing alcohol in the p ast year? No Points 0 Interpretation Negative Problems Problem Type SNOMED Code ICD Code Onset Dates Problem Status W/U Status Risk Notes Problem Colon cancer screening (879058174) Colon cancer screening (Z12.11) Active confirmed Problem Elevated liver enzymes level (661361062) Elevated liver enzymes (R74.8) Active confirmed Problem Long-term current use of antiplatelet drug (247188723786329 ) Long-term use of aspirin therapy (Z79.82) Active confirmed Problem Long-term current use of drug therapy (154306373) [facility] (current) use of oral hypoglycemic drugs (Z79.84) Active confirmed Vital Signs Temperature 97.1 degrees Fahrenheit 03/29/2025 Blood pressure diastolic 01 mm Hg 03/29/2025 Height 65 in 03/29/2025 Blood pressure systolic 001 mm Hg 03/29/2025 Weight 237.8 lbs 03/29/2025 BMI 39.57 kg/m2 03/29/2025 Encounters Encounter Location Date Provider Diagnosis [facility] [address] [place] [phone] 03/29/2025 Keith Berrios Jr Elevated liver enzymes R74.8 and Colon cancer screening Z12.11 [facility] [address] [place] [phone] 04/12/2025 Keith Berrios Jr Assessments Encounter Date Diagnosis (ICD Code) Assessment Notes Treatment Notes Treatment Clinical Notes Section Notes 03/29/2025 Colon cancer screening (ICD-10 - Z12.11) We discussed elevated liver enzymes today. We recommended Zena have further evaluation with fibrosis testing iron studies and further autoimmune testing. We discussed fatty liver as well which seems to be the most likely cause for her findings. It seems unlikely that this would be medication related and we discussed this as well. She is up-to-date on colorectal cancer screening. Follow-up will be as above. Office visit in November. 03/29/2025 Elevated liver enzymes (ICD-10 - R74.8) We discussed elevated liver enzymes today. We recommended Zena have further evaluation with fibrosis testing iron studies and further autoimmune testing. We discussed fatty liver as well which seems to be the most likely cause for her findings. It seems unlikely that this would be medication related and we discussed this as well. She is up-to-date on colorectal cancer screening. Follow-up will be as above. Office visit in November. Plan Of Treatment Pending Test Test Name Order Date LIVER PROFILE 03/29/2025 IRON + IBC (FE) 03/29/2025 FERRITIN 03/29/2025 CBC w/o DIFF 03/29/2025 SMOOTH MUSCLE ANTIBODIES 03/29/2025 Future Test Test Name Order Date COLONOSCOPY 10/26/2022 Next Appt Details Provider Name:Keith Albarado Johnson dumont , 11/29/2025 01:55:00 PM, [address] [place] [address], [address], [place], [phone], Insurance Providers Payer Name Payer Address Payer Phone Subscriber Number Group Number Insured Name Patient Relationship to Insured Coverage Start Date Coverage End Date [facility] [address] [place] [phone] [id number] [id number] Self - patient is the insured Medical (General) History Medical History History ICD Code Coronary artery disease with ME and sten t placement 2017 Hypertension Hyperlipidemia Elevated blood sugar Panic attacks Surgical History Surgery Date(Month/Year) stent/heart 2017 hysterectomy 2003
== END 2025-07-16 10:35 | disposition home or self-care (01) ==
LOC: HO.LAB 10:34
PROVIDERS: PCP Internal Medicine; Visit Provider Internal Medicine
DX: E11.9 Type 2 diabetes mellitus without complications (principal); E87.6 Hypokalemia; R74.01 Elevation of levels of liver transaminase levels; Z95.818 Presence of other cardiac implants and grafts
CPT/HCPCS: 36415; 80053; 80061; 82043; 82570; 83036; 85025